=== PATIENT | male | born 1985 | race Two or more races ===

== ENCOUNTER 2024-05-07 00:13 | Inpatient (IN) | payer OTHER ==
[~2024-05-07] VITALS: Ht 180.3 cm; Wt 86.4 kg
[2024-05-07] MEDS ORDERED: BUPR1TAB45 SL (00:32)
[2024-05-07] MEDS ORDERED: GABA-1181 PO (00:32)
[2024-05-07 01:27] LABS: BASOPHILS % (AUTO) 0.7 % (0.0-2.0); EOSINOPHILS % (AUTO) 4.4 % (1.0-6.0); HEMATOCRIT 43.1 % (41-53); HEMOGLOBIN 14.8 g/dL (13.5-17.5); LYMPHOCYTES # (AUTO) 2.1 K/uL (1.0-4.8); LYMPHOCYTES % (AUTO) 25.4 % (22.0-44.0); MEAN CORPUSCULAR HEMOGLOBIN 29.9 pg (26.0-34.0); MEAN CORPUSCULAR HGB CONC 34.2 G/dL (31.0-37.0); MEAN CORPUSCULAR VOLUME 87 fL (80-100); MONOCYTES # (AUTO) 0.7 K/uL (0.1-1.0); MONOCYTES % (AUTO) 8.4 % (2.0-9.0); NEUTROPHILS % (AUTO) 61.1 % (40.0-70.0); PLATELET COUNT (AUTO) 254 K/uL (150-450); RED BLOOD CELL COUNT(AUTO) 4.94 MIL/uL (4.50-5.90); WHITE BLOOD COUNT (AUTO) 8.2 K/uL (4.5-11.0)
[2024-05-07 01:35] LABS: ANION GAP 8 mmol/L (8-16); CARBON DIOXIDE 27 mmol/L (22-29); CHLORIDE 103 mmol/L (98-107); CREATININE 0.75 mg/dL (0.60-1.30); GLOMERULAR FILTR. RATE CALC > 60 mL/min (>60); GLUCOSE,RANDOM 100 mg/dL (70-110); POTASSIUM 3.5 mmol/L (3.5-5.1); SODIUM SERUM 138 mmol/L (136-145); UREA NITROGEN, BLOOD 14 mg/dL (7-18)
[2024-05-07 02:01] LABS: CREATINE KINASE, TOTAL ONLY 99 U/L (39-308)
[2024-05-07 02:16] LABS: ALCOHOL, BLOOD (SERUM) < 3 mg/dL (0-10)
[2024-05-07] MEDS: LORazepam 2 MG TABLET PO ONE (02:30)
[2024-05-07] MEDS: SODIUM CHLORIDE 0.9% 1,000 ML IV ONE ×2 (02:30→10:18)
[2024-05-07] MEDS: BUPRENORPHINE HCL/NALOXONE HCL 8-2 MG SUBLINGUAL TABLET SL ONE (02:31)
[2024-05-07 08:39] VITALS: BP 98/65; PULSE 61; RESP 16; TEMP 97.9; O2SAT 99
[2024-05-07] MEDS ORDERED: LORazepam 2 MG/ML VIAL IVP PRN (10:15)
[2024-05-07] MEDS ORDERED: LOPERAMIDE HCL 2 MG CAPSULE PO PRN (10:15)
[2024-05-07] MEDS: GABAPENTIN 300 MG CAPSULE PO SCH (10:18)
[2024-05-07 15:25] VITALS: BP 113/72; PULSE 64; RESP 20; TEMP 98.3; O2SAT 99
[2024-05-07] MEDS ORDERED: INFLUENZA VIRUS VACCINE TVS (6MO+) 2024-25/PF 45 MCG/0.5 ML SYRINGE IM. ONE (16:15)
[2024-05-07 20:09] VITALS: BP 116/56; PULSE 74; RESP 18; TEMP 97.8; O2SAT 97
[2024-05-07] MEDS: DICYCLOMINE HCL 10 MG CAPSULE PO PRN (20:21)
[2024-05-07] MEDS: TEMAZEPAM 15 MG CAPSULE PO SCH (20:21)
[2024-05-08 04:29] VITALS: BP 134/71; PULSE 63; RESP 18; TEMP 98; O2SAT 97
[2024-05-08 06:24] LABS: ANION GAP 5 mmol/L (8-16); CALCIUM, TOTAL 8.6 mg/dL (8.8-10.5); CARBON DIOXIDE 28 mmol/L (22-29); CHLORIDE 102 mmol/L (98-107); CREATININE 0.76 mg/dL (0.60-1.30); GLOMERULAR FILTR. RATE CALC > 60 mL/min (>60); GLUCOSE,RANDOM 91 mg/dL (70-110); POTASSIUM 3.7 mmol/L (3.5-5.1); SODIUM SERUM 135 mmol/L (136-145); UREA NITROGEN, BLOOD 13 mg/dL (7-18)
[2024-05-08 08:30] VITALS: BP 109/71; PULSE 51; RESP 18; TEMP 98.1; O2SAT 100
[2024-05-08 08:37] VITALS: BP 109/71; PULSE 51; RESP 18; TEMP 98.1; O2SAT 100
[2024-05-08 16:22] VITALS: BP 122/86; PULSE 97; RESP 17; TEMP 97.8; O2SAT 100
[2024-05-08] MEDS: METOCLOPRAMIDE HCL 5 MG/ML 2 ML VIAL IVP PRN (18:44)
[2024-05-08 19:54] VITALS: BP 110/60; PULSE 67; RESP 18; TEMP 98.1; O2SAT 99
[2024-05-09 04:34] VITALS: BP 127/61; PULSE 76; RESP 18; TEMP 97.9; O2SAT 98
[2024-05-09 07:15] LABS: ANION GAP 9 mmol/L (8-16); CALCIUM, TOTAL 8.8 mg/dL (8.8-10.5); CARBON DIOXIDE 25 mmol/L (22-29); CHLORIDE 101 mmol/L (98-107); CREATININE 0.64 mg/dL (0.60-1.30); GLOMERULAR FILTR. RATE CALC > 60 mL/min (>60); GLUCOSE,RANDOM 78 mg/dL (70-110); POTASSIUM 3.4 mmol/L (3.5-5.1); SODIUM SERUM 135 mmol/L (136-145); UREA NITROGEN, BLOOD 12 mg/dL (7-18)
[2024-05-09 09:15] VITALS: BP 121/68; PULSE 72; RESP 16; TEMP 97.5; O2SAT 97
[2024-05-09] MEDS ORDERED: TEMA15CA PO (11:26)
[2024-05-09] MEDS: POTASSIUM CHLORIDE 10% 40 MEQ/30 ML LIQUID UDCUP PO ONE (11:34)
== END 2024-05-09 16:36 | DRG 897 ==
LOC: EMS 00:15 → EDH 06:27 → 6S 08:05
PROVIDERS: ADMIT Internal Medicine; ATTEND Internal Medicine
DX: F11.13 Opioid abuse with withdrawal (principal); Z79.899 Other long term (current) drug therapy; F15.10 Other stimulant abuse, uncomplicated; F17.210 Nicotine dependence, cigarettes, uncomplicated
CPT/HCPCS: 80048; 82550; 85025; 99285; G0480; J2765; J7030

== ENCOUNTER 2025-01-15 18:21 | Inpatient (IN) | payer OTHER ==
[~2025-01-15] VITALS: Ht 175.3 cm; Wt 98.0 kg
[~2025-01-15 18:21] MED LIST: GABA-1181 PO; TEMA15CA PO
[2025-01-15] MEDS: BUPRENORPHINE HCL/NALOXONE HCL 8-2 MG SUBLINGUAL TABLET SL ONE (21:27)
[2025-01-15 22:29] LABS: APPEARANCE,URINE CLEAR (CLEAR); GLUCOSE, URINE (UA) NEGATIVE (NEGATIVE); LEUKOCYTE ESTERASE ,URINE NEGATIVE (NEGATIVE); NITRATE,URINE NEGATIVE (NEGATIVE); OCCULT BLOOD,URINE NEGATIVE (NEGATIVE); PH,URINE DRUG SCREEN 7.0 (5.0-8.0); PLATELET COUNT (AUTO) 201 K/uL (150-450); RED BLOOD CELL COUNT(AUTO) 4.66 MIL/uL (4.50-5.90); RED CELL DISTRIBUTION WIDTH 14.3 % (11.5-14.5); SPECIFIC GRAVITIY, URINE 1.019 (1.003-1.030); WHITE BLOOD COUNT (AUTO) 5.4 K/uL (4.5-11.0)
[2025-01-15] MEDS ORDERED: METOCLOPRAMIDE HCL 5 MG/ML 2 ML VIAL IVP PRN (22:30)
[2025-01-15] MEDS ORDERED: DICYCLOMINE HCL 10 MG CAPSULE PO PRN (22:30)
[2025-01-15] MEDS ORDERED: LORazepam 2 MG/ML VIAL IVP PRN (22:30)
[2025-01-15] MEDS ORDERED: LOPERAMIDE HCL 2 MG CAPSULE PO PRN (22:30)
[2025-01-15 22:35] LABS: AMPHET/METH SCREEN,URINE NEGATIVE (NEGATIVE); BARBITURATE SCREEN, URINE NEGATIVE (NEGATIVE); CALCIUM, TOTAL 8.6 mg/dL (8.8-10.5); CANNABINOID SCREEN,URINE POSITIVE (NEGATIVE); COCAINE SCREEN,URINE NEGATIVE (NEGATIVE); CREATININE 0.69 mg/dL (0.60-1.30); GLOMERULAR FILTR. RATE CALC > 60 mL/min (>60); GLUCOSE,RANDOM 96 mg/dL (70-110); METHADONE SCREEN, URINE NEGATIVE (NEGATIVE); SODIUM SERUM 140 mmol/L (136-145); UREA NITROGEN, BLOOD 18 mg/dL (7-18)
[2025-01-15] MEDS: GABAPENTIN 300 MG CAPSULE PO ONE (22:35)
[2025-01-15 22:40] LABS: ALCOHOL, URINE DRUG SCREEN NEGATIVE (NEGATIVE)
[2025-01-15] MEDS: SODIUM CHLORIDE 0.9% 1,000 ML IV ONE (22:44)
[2025-01-15 23:15] VITALS: BP 117/72; PULSE 53; RESP 18; TEMP 98.1; O2SAT 100
[2025-01-16 04:30] VITALS: BP 98/60; PULSE 48; RESP 18; TEMP 97.5; O2SAT 98
[2025-01-16 07:14] LABS: PLATELET COUNT (AUTO) 193 K/uL (150-450); RED BLOOD CELL COUNT(AUTO) 4.47 MIL/uL (4.50-5.90); RED CELL DISTRIBUTION WIDTH 14.1 % (11.5-14.5); WHITE BLOOD COUNT (AUTO) 4.2 K/uL (4.5-11.0)
[2025-01-16 07:33] LABS: CALCIUM, TOTAL 8.5 mg/dL (8.8-10.5); CREATININE 0.65 mg/dL (0.60-1.30); GLOMERULAR FILTR. RATE CALC > 60 mL/min (>60); GLUCOSE,RANDOM 88 mg/dL (70-110); SODIUM SERUM 139 mmol/L (136-145); UREA NITROGEN, BLOOD 17 mg/dL (7-18)
[2025-01-16 08:33] VITALS: BP 109/72; PULSE 56; RESP 18; TEMP 97.5; O2SAT 100
[2025-01-16] MEDS ORDERED: GABAPENTIN 300 MG CAPSULE PO SCH (16:00)
[2025-01-16] MEDS: BUPRENORPHINE HCL/NALOXONE HCL 8-2 MG SUBLINGUAL TABLET SL SCH (16:06)
[2025-01-16] MEDS: GABAPENTIN 300 MG CAPSULE PO SCH (16:06)
[2025-01-16 19:47] VITALS: BP 112/75; PULSE 53; RESP 18; TEMP 98.1; O2SAT 98
[2025-01-16] MEDS: TEMAZEPAM 15 MG CAPSULE PO SCH (20:20)
[2025-01-17 04:51] VITALS: BP 98/69; PULSE 57; RESP 18; TEMP 98.2; O2SAT 99
[2025-01-17 07:48] VITALS: BP 113/76; PULSE 57; RESP 18; TEMP 97.8; O2SAT 97
[2025-01-17] MEDS ORDERED: BUPR1TAB46 SL (13:07)
[2025-01-17 16:30] VITALS: BP 115/76; PULSE 55; RESP 18; TEMP 98; O2SAT 99
[2025-01-17 19:20] VITALS: BP 123/75; PULSE 60; RESP 18; TEMP 98.1; O2SAT 98
== END 2025-01-17 19:20 | DRG 897 ==
LOC: EMS 18:21 → EDH 21:21 → 6N 23:05
PROVIDERS: ADMIT Internal Medicine; ATTEND Internal Medicine
DX: F11.23 Opioid dependence with withdrawal (principal); F15.90 Other stimulant use, unspecified, uncomplicated; I25.2 Old myocardial infarction; Z87.891 Personal history of nicotine dependence
CPT/HCPCS: 80048; 80307; 81003; 85025; 99285